=== PATIENT | female | born 1985 | race Caucasian/White ===

== ENCOUNTER 2017-02-10 17:11 | Emergency (ER) | payer OTHER ==
[2017-02-10 17:19] VITALS: TEMP 98.1; BMI 34.2
[2017-02-10] MEDS ORDERED: SODIUM CHLORIDE 1,000 ML IV STA (18:05)
--- NOTE | 2017-02-10 18:05 | PDOC ---
[id number] is a 32 year old female, with a significant past medical history of frequent syncopal episodes, who presents to the emergency department for lightheadedness and dizziness today s/p syncopal episode this morning. She states she felt very lightheaded and weak this morning and syncopized. She states she went to her bed and fell asleep. She reports that when she woke up she continued to feel dizzy and lightheaded. She also reports having unsteady gait. She states she has experienced this numerous times in the past. She denies loss of appetite. She denies chest pain, shortness of breath, headache. She denies fever, chills, nausea, vomit, diarrhea and constipation. She denies dysuria, frequency, urgency and hematuria. Allergies: NKDA Past surgical history: gastric sleeve, D&C x4, cholecystectomy, tubal removal <Ena Vasquez - Last Filed: 02/10/17 18:08> <Marleny Harrison - Last Filed: 02/17/17 10:40> - General Chief Complaint: Lightheaded Stated Complaint: SYNCOPE/NEAR SYNCOPE Time Seen by Provider: 02/10/17 17:41 Past History <Ena Vasquez - Last Filed: 02/10/17 18:08> - Past Medical History Asthma: Yes (last attack 11/2015) Cancer: No Cardiac Disorders: No CVA: No Dementia: No Diabetes: No GI Disorders: No Disorders: No HTN: No Hypercholesterolemia: No Liver Disease: No Seizures: No Thyroid Disease: No Other medical history: MIGRAINES - Surgical History Abdominal Surgery: Yes (GASTRIC SLEEVE) Cholecystectomy: Yes GI Surgery: Yes (SLEEVE) - Reproductive History (#): 9 Para: 3 Cervical CA: No Dysfunctional Uterine Bleeding: No Ectopic : No Endometrial CA: No Polycystic Ovaries: No Therapeutic (s) & number: Yes (4) Tubal Ligation: No Spontaneous : 1 - Psycho/Social/Smoking Cessation Hx Suicidal Ideation: No Smoking History: Never smoked Have you smoked in the past 12 months: No Information on smoking cessation initiated: No Hx Alcohol Use: No Drug/Substance Use Hx: No Substance Use Type: None Hx Substance Use Treatment: No <Marleny Harrison - Last Filed: 02/17/17 10:40> - Past Medical History Allergies/Adverse Reactions: Allergies Allergy/AdvReac Type Severity Reaction Status Date / Time No Known Drug Allergies Allergy Verified 02/10/17 17:19 Home Medications: Ambulatory Orders Ondansetron [Zofran *Odt*] 4 mg SL TID #30 od.tablet 02/10/17 Pramipexole Dihydrochloride [Mirapex -] 0.25 mg PO AM 02/10/17 Pramipexole Dihydrochloride [Mirapex -] 0.375 mg PO HS 02/10/17 Sulfamethoxazole/Trimethoprim [Bactrim *Ds*] 1 tab PO BID #14 tablet 02/10/17 Topiramate 75 mg PO BID 02/10/17 Review of Systems - Review of Systems Able to Perform ROS?: Yes Comments:: 02/10/17 18:08 GENERAL/CONSTITUTIONAL: (+) syncope and weakness. No fever or chills. HEAD, EYES, EARS, NOSE AND THROAT: No change in vision. No ear pain or discharge. No sore throat. CARDIOVASCULAR: No chest pain or shortness of breath. RESPIRATORY: No cough, wheezing, or hemoptysis. GASTROINTESTINAL: No nausea, vomiting, diarrhea or constipation. GENITOURINARY: No dysuria, frequency, or change in urination. MUSCULOSKELETAL: No joint or muscle swelling or pain. No neck or back pain. SKIN: No rash NEUROLOGIC: (+) vertigo, No headache, loss of consciousness, or change in strength/sensation. ENDOCRINE: No increased thirst. No abnormal weight change. HEMATOLOGIC/LYMPHATIC: No anemia, easy bleeding, or history of blood clots. ALLERGIC/IMMUNOLOGIC: No hives or skin allergy. <Ena Vasquez - Last Filed: 02/10/17 18:08> *Physical Exam - Vital Signs Last Vital Signs Temp Pulse Resp BP Pulse Ox 98.1 F 82 18 126/81 99 02/10/17 17:13 02/10/17 17:13 02/10/17 17:13 02/10/17 17:13 02/10/17 17:13 - Physical Exam Comments: 02/10/17 18:09 GENERAL: Awake, alert, and fully oriented, in no acute distress HEAD: No signs of trauma EYES: PERRLA, EOMI, sclera anicteric, conjunctiva clear ENT: (+) Dry mucosa. Auricles normal inspection, hearing grossly normal, nares patent, oropharynx clear without exudates. NECK: Normal ROM, supple, no lymphadenopathy, JVD, or masses LUNGS: Breath sounds equal, clear to auscultation bilaterally. No wheezes, and no crackles HEART: Regular rate and rhythm, normal S1 and S2, no murmurs, rubs or gallops ABDOMEN: Soft, nontender, normoactive bowel sounds. No guarding, no rebound. No masses EXTREMITIES: Normal range of motion, no edema. No clubbing or cyanosis. No cords, erythema, or tenderness NEUROLOGICAL: Cranial nerves II through XII grossly intact. Normal speech, normal gait SKIN: (+) pallor. Warm, Dry, normal turgor, no rashes or lesions noted. <Ena Vasquez - Last Filed: 02/10/17 18:08> - Vital Signs Last Vital Signs Temp Pulse Resp BP Pulse Ox 98.1 F 82 18 126/81 99 02/10/17 17:13 02/10/17 17:13 02/10/17 17:13 02/10/17 17:13 02/10/17 17:13 <Marleny Harrison - Last Filed: 02/17/17 10:40> ED Treatment Course - LABORATORY CBC & Chemistry Diagram: 02/10/17 18:24 02/10/17 19:49 <Marleny Harrison - Last Filed: 02/17/17 10:40> Medical Decision Making - Medical Decision Making 02/10/17 19:[address] Herrera. History of multiple episodes of syncope in the past. Awaiting labs and urine to evaluate for any obvious medical causes. F/u, likely discharge home. <Marleny aHrrison - Last Filed: 02/17/17 10:40> *DC/Admit/Observation/Transfer - Attestations Scribe Attestion: 02/10/17 18:10 Documentation prepared by Ena Vasquez, acting as medical records field technician for Marleny Harrison MD, <Ena Vasquez - Last Filed: 02/10/17 18:08> <Marleny Harrison - Last Filed: 02/17/17 10:40> Diagnosis at time of Disposition: UTI (urinary tract infection) Qualifiers: Urinary tract infection type: site unspecified Hematuria presence: without hematuria Qualified Code(s): N39.0 - Urinary tract infection, site not specified - Discharge Dispostion Disposition: HOME - Prescriptions Prescriptions: Sulfamethoxazole/Trimethoprim [Bactrim *Ds*] 1 tab PO BID #14 tablet Ondansetron [Zofran *Odt*] 4 mg SL TID #30 od.tablet - Referrals Referrals: Felicity Leon NP [Primary Care Provider] - - Patient Instructions Printed Discharge Instructions: DI for Urinary Tract Infection (UTI)
[2017-02-10 18:43] LABS: BASOPHIL 0.8 % (0-2.0); MCH 31.3 pg (25.7-33.7); MCHC 34.2 g/dl (32.0-36.0); MEAN CELL VOLUME 91.5 fl (80-96); MEAN PLT VOLUME 10.2 fl (7.5-11.1); NEUTROPHILS 72.6 % (42.8-82.8); PLATELET COUNT 277 K/MM3 (134-434); RDW 13.2 % (11.6-15.6); WHITE BLOOD COUNT 8.9 K/mm3 (4.0-10.0)
[2017-02-10 20:25] LABS: ALBUMIN 3.8 g/dl (3.4-5.0); ALK PHOS 48 U/L (45-117); ANION GAP 9 (8-16); BILIRUBIN,TOTAL 0.4 mg/dL (0.2-1.0); CALCIUM 8.9 mg/dL (8.5-10.1); CO2 22 mmol/L (21-32); CREATININE 0.6 mg/dL (0.55-1.02); GLUCOSE,RANDOM 88 mg/dL (74-106); SGOT/AST 14 U/L (15-37); SGPT/ALT 21 U/L (12-78); TOT PROT 7.1 g/dl (6.4-8.2)
[2017-02-10 20:28] VITALS: BP 116/78; PULSE 64
[2017-02-10 20:36] LABS: URINE APPEARANCE SLCLOUDY; URINE BILIRUBIN NEGATIVE (NEGATIVE); URINE BLOOD NEGATIVE (NEGATIVE); URINE COLOR YELLOW; URINE GLUCOSE (UA) NEGATIVE (NEGATIVE); URINE KETONE NEGATIVE (NEGATIVE); URINE NITRITE NEGATIVE (NEGATIVE); URINE PROTEIN NEGATIVE (NEGATIVE); URINE UROBILINOGEN NEGATIVE E.U./dl (0.2-1.0)
[2017-02-10 20:42] LABS: URINE LEUK ESTERASE 2+ (NEGATIVE)
[2017-02-10] MEDS ORDERED: SULFAMETHOXAZOLE/TRIMETHOPRIM 800MG/160MG D.S. TABLET PO ONE (20:59)
--- NOTE | 2017-02-10 20:59 | PDOC ---
*Physical Exam - Vital Signs Last Vital Signs Temp Pulse Resp BP Pulse Ox 98.1 F 64 18 116/78 100 02/10/17 17:13 02/10/17 20:27 02/10/17 20:27 02/10/17 20:27 02/10/17 20:27 ED Treatment Course - LABORATORY CBC & Chemistry Diagram: 02/10/17 18:24 02/10/17 19:49 - ADDITIONAL ORDERS Additional order review: Laboratory Results 02/10/17 02/10/17 02/10/17 19:49 19:15 18:24 Sodium 139 Cancelled Potassium 4.4 Cancelled Chloride 108 H Cancelled Carbon Dioxide 22 Cancelled Anion Gap 9 Cancelled BUN 16 Cancelled Creatinine 0.6 Cancelled Creat Clearance w eGFR > 60 Cancelled Random Glucose 88 Cancelled Calcium 8.9 Cancelled Total Bilirubin 0.4 Cancelled AST 14 L Cancelled ALT 21 Cancelled Alkaline Phosphatase 48 Cancelled Total Protein 7.1 Cancelled Albumin 3.8 Cancelled Urine Color Yellow Urine Appearance Slcloudy Urine pH 6.0 Ur Specific [place] 1.025 Urine Protein Negative Urine Glucose (UA) Negative Urine Ketones Negative Urine Blood Negative Urine Nitrite Negative Urine Bilirubin Negative Urine Urobilinogen Negative Ur Leukocyte Esterase 2+ H Urine HCG, Qual Negative 02/10/17 18:24 RBC 4.74 MCV 91.5 MCHC 34.2 RDW 13.2 MPV 10.2 Neutrophils % 72.6 Lymphocytes % 21.1 D Monocytes % 4.5 Eosinophils % 1.0 Basophils % 0.8 - Medications Given in the ED: ED Medications Discontinued Medications Generic Name Dose Route Start Last Admin Trade Name Freq PRN Reason Stop Dose Admin Sodium Chloride 1,000 mls @ 1,000 mls/hr 02/10/17 18:05 02/10/17 18:32 Normal Saline - IV 02/10/17 19:04 1,000 mls/hr ASDIR STA Administration *DC/Admit/Observation/Transfer Diagnosis at time of Disposition: UTI (urinary tract infection) Qualifiers: Urinary tract infection type: site unspecified Hematuria presence: without hematuria Qualified Code(s): N39.0 - Urinary tract infection, site not specified - Discharge Dispostion Disposition: HOME Condition at time of disposition: Stable Admit: No - Referrals Referrals: Felicity Leon NP [Primary Care Provider] - - Patient Instructions Printed Discharge Instructions: DI for Urinary Tract Infection (UTI) - Post Discharge Activity
[2017-02-10] MEDS ORDERED: SULFAMETHOXAZOLE/TRIMETHOPRIM 800MG/160MG D.S. TABLET ONE (21:07)
[2017-02-10 21:56] LABS: URINE MUCUS FEW; URINE RBC 3 /hpf (0-3); URINE WBC 6 /hpf (3-5)
== END 2017-02-10 21:18 | disposition home or self-care (01) ==
LOC: JER 17:11
PROC: 3E0237Z Introduction of Electrolytic and Water Balance Substance into Muscle, Percutaneous Approach (ICD-10-PCS; principal; 2017-02-10)
DX: N39.0 Urinary tract infection, site not specified (principal)
CPT/HCPCS: 36415; 80053; 81003; 81015; 84703; 85025; 96360; 99283-25

== ENCOUNTER 2017-07-28 09:38 | Emergency (ER) | payer OTHER ==
[2017-07-28 09:46] VITALS: BP 124/88; PULSE 78; TEMP 98.6; BMI 38.2
[2017-07-28] MEDS ORDERED: KETOROLAC TROMETHAMINE 60 MG/2 ML VIAL IM ONE (11:38)
[2017-07-28] MEDS ORDERED: KETOROLAC TROMETHAMINE 60 MG/2 ML VIAL ONE (11:39)
--- NOTE | 2017-07-28 11:42 | PDOC ---
History of Present Illness - General Chief Complaint: Back Pain Stated Complaint: BACK PAIN Time Seen by Provider: 07/28/17 10:49 History Source: Patient Exam Limitations: No Limitations - History of Present Illness Initial Comments: 07/28/17 11:37 Patient is here for second evaluation for back pain. States was seen by her PMD 2 weeks ago and prescribed Aleve and cyclobenzaprine for low back spasm. Has had minimal to no relief. Denies numbness or tingling of the foot. Denies fevers , no nausea vomiting diarrhea or constipation. Denies any dysuria. Has had kidney stones in the past but denies that same type of pain. Feels is persistent spasm but is uncertain. Occurred: reports: just prior to arrival Severity: reports: mild Pain Location: reports: back Method of Injury: Yes: unknown Modifying Factors: improves with: None. worse with: pain medication Loss of Consciousness: no loss of consciousness Associated Symptoms (Fall): denies symptoms Past History - Travel Traveled outside of the country in the last 30 days: No Close contact w/someone who was outside of country & ill: No - Past Medical History Allergies/Adverse Reactions: Allergies Allergy/AdvReac Type Severity Reaction Status Date / Time No Known Drug Allergies Allergy Verified 07/28/17 09:43 Home Medications: Ambulatory Orders Methocarbamol [Robaxin -] 1,500 mg PO Q8H PRN #20 tablet 07/28/17 Naproxen [Naprosyn -] 500 mg PO BID #14 tablet 07/28/17 Prednisone [Deltasone -] 20 mg PO BID #10 tablet 07/28/17 Asthma: Yes (last attack 11/2015) Cancer: No Cardiac Disorders: No CVA: No Dementia: No Diabetes: No GI Disorders: No Disorders: No HTN: No Hypercholesterolemia: No Liver Disease: No Seizures: No Thyroid Disease: No - Surgical History Abdominal Surgery: Yes (GASTRIC SLEEVE) Cholecystectomy: Yes GI Surgery: Yes (SLEEVE) - Reproductive History (#): 9 Para: 3 Cervical CA: No Dysfunctional Uterine Bleeding: No Ectopic : No Endometrial CA: No Polycystic Ovaries: No Therapeutic (s) & number: Yes (4) Tubal Ligation: No Spontaneous : 1 - Suicide/Smoking/Psychosocial Hx Smoking History: Never smoked Have you smoked in the past 12 months: No Information on smoking cessation initiated: No Hx Alcohol Use: No Drug/Substance Use Hx: No Substance Use Type: None Hx Substance Use Treatment: No Review of Systems - Review of Systems Able to Perform ROS?: Yes Is the patient limited Wallisian proficient: Yes Constitutional: Yes: Symptoms Reported, See HPI, Loss of Appetite. No: Fever, Malaise HEENTM: Yes: See HPI. No: Symptoms Reported Musculoskeletal: Yes: Symptoms Reported, See HPI, Back Pain. No: Joint Pain Integumentary: Yes: See HPI. No: Symptoms Reported, Rash All Other Systems: Reviewed and Negative *Physical Exam - Vital Signs Last Vital Signs Temp Pulse Resp BP Pulse Ox 98.6 F 78 18 124/88 99 07/28/17 09:41 07/28/17 09:41 07/28/17 09:41 07/28/17 09:41 07/28/17 09:41 - Physical Exam General Appearance: Yes: Nourished, Appropriately Dressed, Apparent Distress HEENT: positive: DARRIN, Normal ENT Inspection, TMs Normal, Pharynx Normal Neck: positive: Supple. negative: Tender Respiratory/Chest: positive: Lungs Clear Cardiovascular: positive: Regular Rate Gastrointestinal/Abdominal: positive: Soft. negative: Tender Musculoskeletal: positive: Normal Inspection, Decreased Range of Motion, Muscle Spasm (palpable spasm noted to the paravertebral spinous muscles and lower lumbar spine.). negative: CVA Tenderness, Vertebral Tenderness Extremity: positive: Normal Capillary Refill, Normal Inspection, Normal Range of Motion Integumentary: positive: Normal Color, Dry, Warm Neurologic: positive: gem cutter II-XII NML intact, Fully Oriented, Alert, Normal Mood/ Affect, Normal Response, Motor Strength 5/5 Progress Note - Progress Note Progress Note: Persistent spasm, will treat and change from cyclobenzaprine to Robaxin, and add prednisone for steroidal anti-inflammatory purposes along with ibuprofen. Encouraged patient to follow up with PMD for further testing and possible physical therapy referral. *DC/Admit/Observation/Transfer Diagnosis at time of Disposition: Low back strain Qualifiers: Encounter type: initial encounter Qualified Code(s): S39.012A - Strain of muscle, fascia and tendon of lower back, initial encounter; S39.012A - Strain of muscle, fascia and tendon of lower back, initial encounter - Discharge Dispostion Disposition: HOME Condition at time of disposition: Stable Admit: No - Referrals Referrals: Nima Moore [Primary Care Provider] - - Patient Instructions Printed Discharge Instructions: DI for Back Strain or Sprain Additional Instructions: Rest, no heavy lifting or exercise until pain is resolved Hot soaks to neck and low back as often as possible/hot showers or Jacuzzis No massage or therapy until spasm is gone Continue ibuprofen 2-200 mg tablets every 6 hours for the next 3 days then as needed for pain and swelling Prednisone 40 mg daily for the next 5 days Robaxin 1500 mg every 8 hours today then reduce to 750 mg every 8 hours as needed for spasm If not significant improvement within 24 hours with medication and rest regime, followup with private physician for change in medications and /or therapy. - Post Discharge Activity Forms/Work/School Notes: Back to Work
[2017-07-28 11:50] LABS: URINE APPEARANCE CLEAR; URINE BILIRUBIN NEGATIVE (NEGATIVE); URINE BLOOD NEGATIVE (NEGATIVE); URINE COLOR YELLOW; URINE GLUCOSE (UA) NEGATIVE (NEGATIVE); URINE KETONE NEGATIVE (NEGATIVE); URINE NITRITE NEGATIVE (NEGATIVE); URINE PROTEIN NEGATIVE (NEGATIVE); URINE UROBILINOGEN NEGATIVE mg/dL (0.2-1.0)
[2017-07-28 19:33] LABS: URINE LEUK ESTERASE Negative (NEGATIVE)
== END 2017-07-28 12:59 | disposition home or self-care (01) ==
LOC: JERFT 09:38
PROC: 3E0133Z Introduction of Anti-inflammatory into Subcutaneous Tissue, Percutaneous Approach (ICD-10-PCS; principal; 2017-07-28)
DX: S39.012A Strain of muscle, fascia and tendon of lower back, initial encounter (principal); X58.XXXA Exposure to other specified factors, initial encounter; Y93.9 Activity, unspecified; Y92.9 Unspecified place or not applicable; J45.909 Unspecified asthma, uncomplicated; Z98.84 Bariatric surgery status
CPT/HCPCS: 72100-TC; 81003; 99281-25

== ENCOUNTER 2017-12-10 09:42 | Emergency (ER) | payer OTHER ==
[2017-12-10 09:49] VITALS: TEMP 98.1; BMI 36.6
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
[2017-12-10] MEDS ORDERED: KETOROLAC TROMETHAMINE 30 MG/1 ML VIAL IVPUSH ONE (11:54)
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
[2017-12-10 12:02] LABS: BASO % 0.7 % (0-2.0); EOS % 1.4 % (0-4.5); HEMATOCRIT 40.4 % (32.4-45.2); HEMOGLOBIN 13.5 GM/dL (10.7-15.3); LYMPH % 22.5 % (8-40); MCH 30.9 pg (25.7-33.7); MCHC 33.5 g/dl (32.0-36.0); MEAN CELL VOLUME 92.1 fl (80-96); MEAN PLT VOLUME 9.4 fl (7.5-11.1); MONO % 5.4 % (3.8-10.2); PLATELET COUNT 325 K/MM3 (134-434); RBC 4.38 M/mm3 (3.60-5.2); WHITE BLOOD COUNT 7.6 K/mm3 (4.0-10.0)
[2017-12-10] MEDS ORDERED: KETOROLAC TROMETHAMINE 30 MG/1 ML VIAL ONE (12:02)
[2017-12-10 12:16] LABS: ALBUMIN 3.9 g/dl (3.4-5.0); ANION GAP 10 (8-16); BILIRUBIN,TOTAL 0.3 mg/dL (0.2-1.0); BLOOD UREA NITROGEN 18 mg/dL (7-18); CALCIUM 9.5 mg/dL (8.5-10.1); CHLORIDE 103 mmol/L (98-107); CO2 27 mmol/L (21-32); CREATININE 0.5 mg/dL (0.55-1.02); GLUCOSE,RANDOM 93 mg/dL (74-106); POTASSIUM 4.4 mmol/L (3.5-5.1); SGOT/AST 24 U/L (15-37); SGPT/ALT 36 U/L (12-78); SODIUM 140 mmol/L (136-145)
[2017-12-10 12:17] LABS: ALK PHOS 56 U/L (45-117); TOT PROT 7.4 g/dl (6.4-8.2)
[2017-12-10 15:35] VITALS: BP 125/87; PULSE 74
== END 2017-12-10 15:35 | disposition home or self-care (01) ==
LOC: JERFT 09:42 → JER 09:42
PROC: 3E0333Z Introduction of Anti-inflammatory into Peripheral Vein, Percutaneous Approach (ICD-10-PCS; principal; 2017-12-10)
DX: M54.6 Pain in thoracic spine (principal); V79.49XA Driver of bus injured in collision with other motor vehicles in traffic accident, initial encounter; Y92.414 Local residential or business street as the place of occurrence of the external cause; Y93.89 Activity, other specified
CPT/HCPCS: 36415; 72128-TC; 74177-TC; 80053; 84703; 85025; 99283-25

== ENCOUNTER 2018-03-30 12:22 | Emergency (ER) | payer OTHER ==
[2018-03-30 12:27] VITALS: BMI 37.4
[2018-03-30] MEDS ORDERED: ONDANSETRON *ODT* 4 MG TABLET SL ONE (13:16)
--- NOTE | 2018-03-30 13:16 | PDOC ---
History of Present Illness - General Chief Complaint: Lightheaded Stated Complaint: LIGHTHEADED Time Seen by Provider: 03/30/18 12:57 - History of Present Illness Initial Comments: 03/30/18 14:11 33F with pmh of migraines and vertigo presents with onset of vertigo and nausea this morning around 8:30. Patient has history of episodic vertigo for several years, typically lasts for a few seconds and then resolves. She says that her previous neurological workups never found anything wrong with her. No headache/vision change/speech change/focal weakness. No vomiting, no fevers or chills, no neck stiffness. Symptoms are similar in quality to her past vertigo, but are more severe and lasting longer. Past History - Past Medical History Allergies/Adverse Reactions: Allergies Allergy/AdvReac Type Severity Reaction Status Date / Time No Known Drug Allergies Allergy Verified 03/30/18 12:23 Home Medications: Ambulatory Orders Meclizine HCl [Antivert -] 25 mg PO TID #21 tablet 03/30/18 Asthma: Yes (last attack 11/2015) Cancer: No Cardiac Disorders: No CVA: No COPD: No DVT: No Dementia: No Diabetes: No GI Disorders: No Disorders: No HTN: Yes (NOT ON MEDS , LABILE HTN) Hypercholesterolemia: No Liver Disease: No Seizures: No Thyroid Disease: No Other medical history: MIGRAINES,ARITHRITIS, VERTIGO - Surgical History Abdominal Surgery: Yes (GASTRIC SLEEVE) Cholecystectomy: Yes GI Surgery: Yes (SLEEVE) - Reproductive History (#): 9 Para: 3 Cervical CA: No Dysfunctional Uterine Bleeding: No Ectopic : No Endometrial CA: No Polycystic Ovaries: No Therapeutic (s) & number: Yes (4) Tubal Ligation: No Spontaneous : 1 - Suicide/Smoking/Psychosocial Hx Smoking History: Never smoked Have you smoked in the past 12 months: No Information on smoking cessation initiated: No Hx Alcohol Use: No Drug/Substance Use Hx: No Substance Use Type: None Hx Substance Use Treatment: No Review of Systems - Review of Systems Able to Perform ROS?: Yes Is the patient limited Samoan proficient: No Constitutional: No: Symptoms Reported HEENTM: No: Symptoms Reported Respiratory: No: Symptoms reported Cardiac (ROS): No: Symptoms Reported ABD/GI: No: Symptoms Reported : No: Symptoms Reported Musculoskeletal: No: Symptoms Reported Integumentary: No: Symptoms Reported Neurological: No: Headache *Physical Exam - Vital Signs Last Vital Signs Temp Pulse Resp BP Pulse Ox 98.7 F 75 18 137/99 100 03/30/18 12:23 03/30/18 12:23 03/30/18 12:23 03/30/18 12:23 03/30/18 12:23 - Physical Exam General Appearance: Yes: Nourished, Appropriately Dressed. No: Apparent Distress HEENT: positive: EOMI, DARRIN, Normal ENT Inspection, Other (nystagmus with head impulse test) Respiratory/Chest: positive: Lungs Clear, Normal Breath Sounds. negative: Chest Tender, Respiratory Distress Cardiovascular: positive: Regular Rhythm, Regular Rate, S1, S2 Gastrointestinal/Abdominal: positive: Normal Bowel Sounds, Flat, Soft. negative : Tender Extremity: positive: Normal Capillary Refill, Normal Inspection, Normal Range of Motion Neurologic: positive: Fully Oriented, Alert, Normal Response, Motor Strength 5/5 Medical Decision Making - Medical Decision Making 03/30/18 14:23 33-year-old female with positional vertigo that began this morning. Presentation seems most consistent with benign positional vertigo, less likely central etiology. Trial of antiemetic and meclizine Reassess. No indication for emergent imaging at this time. 03/30/18 14:32 Patient feeling much better with meclizine. 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 Follow up with Dr. Byers, Neurologist. Come back to the ER for any new, concerning or worsening symptom. - Post Discharge Activity Forms/Work/School Notes: Back to Work
[2018-03-30] MEDS ORDERED: ONDANSETRON 8 MG TABLET (FP) PO ONE (13:25)
[2018-03-30] MEDS ORDERED: MECLIZINE HCL 25 MG TABLET (FP) PO ONE (13:28)
[2018-03-30] MEDS ORDERED: MECLIZINE HCL 12.5 MG TABLET ONE (13:31)
[2018-03-30 13:50] LABS: URINE APPEARANCE CLEAR; URINE BILIRUBIN NEGATIVE (<2.0 mg/dL); URINE BLOOD NEGATIVE (NEGATIVE); URINE COLOR LTYELLOW; URINE GLUCOSE (UA) NEGATIVE (NEGATIVE); URINE KETONE NEGATIVE (NEGATIVE); URINE LEUK ESTERASE NEGATIVE (NEGATIVE); URINE NITRITE NEGATIVE (NEGATIVE); URINE PROTEIN NEGATIVE (NEGATIVE); URINE UROBILINOGEN NEGATIVE mg/dL (0.2-1.0)
--- NOTE | 2018-03-30 14:05 | PDOC ---
Attending Attestation - Resident Resident Name: Deny Bai - ED Attending Attestation I have performed the following: I have examined & evaluated the patient, The case was reviewed & discussed with the resident, I agree w/resident's findings & plan - HPI HPI: 03/30/18 14:03 Healthy 33-year-old female presents with vertigo since this morning. Patient has history of episodic vertigo for several years, typically lasts for a few seconds and then resolves. She has had negative neurological workups in the past including MRI several years ago. Patient awoke today feeling well, while at work developed positional vertigo without headache/vision change/speech change/focal weakness. No vomiting, no fevers or chills, no neck stiffness. Symptoms are similar in quality to her past vertigo, but are more severe and lasting longer. - Physicial Exam PE: 03/30/18 14:04 Vital signs normal, h/o salpingectomy documented 2015 Generally well-appearing, ambulating from bathroom but requiring some support by her Pupils are equal round and reactive, speech is clear, neck is supple, no audible carotid bruit, neurological exam is nonfocal including finger-nose- finger - Medical Decision Making 03/30/18 14:05 33-year-old female with positional vertigo that began this morning. Presentation seems most consistent with benign positional vertigo, less likely central etiology. Trial of antiemetic and meclizine Reassess. No indication for emergent imaging at this time.
[2018-03-30 14:44] VITALS: BP 119/81; PULSE 81; TEMP 98.2
== END 2018-03-30 14:45 | disposition home or self-care (01) ==
LOC: JER 12:22
DX: H81.10 Benign paroxysmal vertigo, unspecified ear (principal)
CPT/HCPCS: 81003; 99282-25; Q0162

== ENCOUNTER 2018-08-19 05:19 | Day surgery (SDC) | payer OTHER ==
[2018-08-18 10:59] VITALS: BMI 37.4
[2018-08-19] MEDS ORDERED: IBUPROFEN 800 MG/8 ML IJ IVPB PRN (13:03)
[2018-08-19] MEDS ORDERED: ACETAMINOPHEN 325 MG TABLET (FP) PO PRN (13:03)
--- NOTE | 2018-08-19 13:03 | HP ---
History & Physical Update - History History: No Change - Physical Physical: No Change - Assessment Assessment: No Change - Plan Plan: No Change (Agree with H&P from 08/17/18, AUB, polyp, for hysteroscopy/D&C/ polypectomy.)
[2018-08-19] MEDS ORDERED: LACTATED RINGERS SOLUTION 1,000 ML IV SCH (13:15)
[2018-08-19] MEDS ORDERED: ceFAZolin 2 GRAM PREMIX BAG IVPB ONE (14:30)
[2018-08-19] MEDS ORDERED: MIDAZOLAM HCL 2 MG/2 ML SINGLE DOSE VIAL ONE (14:53)
[2018-08-19] MEDS ORDERED: DEXAMETHASONE SOD PHOSPHATE 4 MG/1 ML VIAL ONE (14:53)
[2018-08-19] MEDS ORDERED: LIDOCAINE HCL/PF 2% SDV 5ML VIAL ONE (14:53)
[2018-08-19] MEDS ORDERED: KETOROLAC TROMETHAMINE 30 MG/1 ML VIAL ONE ×2 (14:53→15:26)
[2018-08-19] MEDS ORDERED: ONDANSETRON 4 MG/2 ML VIAL IVPUSH PRN (14:58)
[2018-08-19] MEDS ORDERED: oxyCODONE HCL 5 MG TABLET PO PRN (14:58)
[2018-08-19] MEDS ORDERED: ceFAZolin SODIUM 1 GM VIAL ONE (15:27)
[2018-08-19] MEDS ORDERED: SODIUM CHLORIDE 0.9% P/F 10 ML VIAL IJ ONE (15:27)
[2018-08-19] MEDS ORDERED: ceFAZolin SODIUM 1 GM VIAL IVPB ONE (15:29)
[2018-08-19] MEDS ORDERED: PROPOFOL 20 ML ONE (15:49)
--- NOTE | 2018-08-19 15:53 | OP ---
Operative Note - Note: Operative Date: 08/19/18 Pre-Operative Diagnosis: AUB, cervical polyp Operation: hysteroscopy, D&C Findings: polypoid endometrial tissue Post-Operative Diagnosis: Same as Pre-op Surgeon: Arleth Montanez Anesthesia: General (with LMA) Specimens Removed: endometrial curettings Estimated Blood Loss (mls): 5 Operative Report Dictated: Yes
[2018-08-19 17:09] VITALS: TEMP 98.2
[2018-08-19 18:09] VITALS: BP 116/73; PULSE 89
--- NOTE | 2018-08-23 15:20 | PATH ---
Surgical Pathology Report Patient Name: PINO CARTWRIGHT [facility]. Rec. #: [id number] /Age/Gender: 1985 (Age: 33) / F Account: [id number] Location: [facility] SUR[facility] Taken: 08/19/2018 Received: 08/20/2018 Reported: 08/23/2018 Physicians: Arleth Montanez M.D. Specimen(s) Received ENDOMETRIAL CURETTINGS Clinical History Polyp, abnormal uterine bleeding Final Diagnosis ENDOMETRIAL CURETTINGS, DILATION AND CURETTAGE: POLYPOID FRAGMENTS OF PROLIFERATIVE ENDOMETRIUM SUGGESTIVE OF POLYP, LOWER UTERINE SEGMENT, SUPERFICIAL MYOMETRIUM, AND BENIGN CERVICAL TISSUE. Electronically Signed Radha Hendrix M.D. Gross Description Received in formalin, labeled "endometrial curetting" are multiple dark brown portions of soft tissue measuring 1.5 x 1.0 x 0.3 cm in aggregate. The specimen is entirely submitted in 1 cassette. ZACH/08/20/2018 azeem/08/20/2018
--- NOTE | 2018-09-01 13:45 | OP ---
DATE OF OPERATION: 08/19/2018 PREOPERATIVE DIAGNOSIS: Abnormal uterine bleeding, cervical polyp. POSTOPERATIVE DIAGNOSIS: Polypoid endometrial tissue. PROCEDURE: Hysteroscopy, dilatation and curettage, and polypectomy. SURGEON: Arleth Montanez MD ANESTHESIA: General with LMA. COMPLICATIONS: None. SPECIMENS REMOVED: Endometrial currettings. ESTIMATED BLOOD LOSS: 5 mL. COUNTS: Sponge, needle, and instrument counts correct. DISPOSITION: Stable to PACU. BRIEF HISTORY AND PROCEDURE: The patient is a 33-year-old female who was in the office complaining of some heavy long periods. On hysterosonogram in the office the endocervical polyp was noted. The patient was counseled on her options and she elected to undergo a hysteroscopic resection of the lesion. The patient was admitted to [facility] in the outpatient procedure unit on August 19, 2018. The consents which were signed in the office were confirmed upon admission. She was then taken back to the operating room and placed in the dorsal lithotomy position and general anesthesia was administered with LMA. A hard time-out was performed. A speculum was placed inside the vagina. The anterior lip of the cervix was grasped with a tenaculum and the cervix was dilated to accommodate a diagnostic hysteroscope, which was introduced into the fundus and bilateral tubal ostia were noted. A lower uterine segment polyp was noted otherwise there were no intracavitary lesions. The hysteroscope was then removed and the suction dilatation and curettage and sharp dilatation and curettage was performed and the hysteroscope was then advanced to the fundus. No uterine perforation or trauma was appreciated and the polypoid tissue had been removed. All instruments were removed from the vaginal and the patient was awoken from anesthesia. The sponge and instruments were reported to be correct. The patient tolerated the procedure well and was recovering in stable condition after the procedure. ARLETH MONTANEZ DO /[id number]
== END 2018-08-19 18:09 | disposition home or self-care (01) ==
LOC: JASU-SURG 05:19
PROVIDERS: ATTEND Obstetrics & Gynecology
PROC: 0UJD8ZZ Inspection of Uterus and Cervix, Via Natural or Artificial Opening Endoscopic (ICD-10-PCS; 2018-08-19)
PROC: 0UB97ZX Excision of Uterus, Via Natural or Artificial Opening, Diagnostic (ICD-10-PCS; principal; 2018-08-19 14:30)
PROC: 0UDB7ZX Extraction of Endometrium, Via Natural or Artificial Opening, Diagnostic (ICD-10-PCS; 2018-08-19 14:30)
DX: N93.9 Abnormal uterine and vaginal bleeding, unspecified (principal); N84.0 Polyp of corpus uteri
CPT/HCPCS: 88305-TC; 94760

== ENCOUNTER 2019-09-29 13:56 | Emergency (ER) | payer OTHER ==
[2019-09-29 14:00] VITALS: BP 130/81; PULSE 97; TEMP 98; BMI 37.4
[2019-09-29] MEDS ORDERED: IBUPROFEN 600 MG TABLET (FP) PO ONE (15:40)
--- NOTE | 2019-09-29 16:57 | PDOC ---
History of Present Illness - General Chief Complaint: Pain Stated Complaint: LT FOOT PAIN Time Seen by Provider: 09/29/19 14:58 History Source: Patient Exam Limitations: No Limitations - History of Present Illness Initial Comments: 09/29/19 16:50 34-year-old female denies past medical history presents complaining of left ankle and foot pain since this morning. States she went to bed with no complaints, awoke this morning stepped on the ground and felt pain to left ankle and foot. Does not recall injury, denies calf pain, recent travel, recent pedicure, chest pain, shortness of breath or any other symptoms. ROS: GENERAL/CONSTITUTIONAL: No fever, chills, weakness, dizziness HEAD, EYES, EARS, NOSE AND THROAT: No changes in vision, No ear pain or discharge, No sore throat CARDIOVASCULAR: No chest pain RESPIRATORY: No shortness of breath or cough GASTROINTESTINAL: No pain, nausea, vomiting, diarrhea or constipation GENITOURINARY: No dysuria MUSCULOSKELETAL: No neck or back pain SKIN: No rash NEUROLOGIC: No headache, vertigo, loss of consciousness, or loss of sensation PE: GENERAL: well-appearing, NAD HEAD: NCAT EYES: Pupils equal, round and reactive to light, sclera anicteric, conjunctiva clear ENT: pharynx: no erythema, no exudate, uvula midline NECK: supple CHEST: nontender RESP: clear, no w/r/r CARDIO: rrr, no m/g/r ABD: +BS, soft, nontender, non distended BACK: no midline spinal ttp, no CVAT EXTREMITIES: Normal range of motion, left lateral ankle swelling, no ecchymosis noted, no bony tenderness to palpation NEUROLOGICAL: Normal speech, walking with slight limp SKIN: Warm, Dry Is this a multiple visit Asthma Patient?: Yes Past History - Past Medical History Allergies/Adverse Reactions: Allergies Allergy/AdvReac Type Severity Reaction Status Date / Time No Known Drug Allergies Allergy Verified 09/29/19 14:00 Home Medications: Ambulatory Orders Amitriptyline HCl 25 mg PO HS 08/18/18 Cetirizine HCl [Zyrtec -] 10 mg PO DAILY 08/18/18 Cholecalciferol (Vitamin D3) [Vitamin D3 -] 400 unit PO DAILY 08/18/18 Magnesium 30 mg PO DAILY 08/18/18 Anemia: Yes (AFTER CHILDBIRTH) Asthma: Yes (last attack 11/2015) Cancer: No Cardiac Disorders: No CVA: No COPD: No CHF: No DVT: No Dementia: No Diabetes: No GI Disorders: No Disorders: No HTN: Yes (NOT ON MEDS , LABILE HTN) Hypercholesterolemia: No Liver Disease: No Seizures: No Thyroid Disease: No - Surgical History Abdominal Surgery: Yes (GASTRIC SLEEVE) Appendectomy: No Cardiac Surgery: No Cholecystectomy: Yes GI Surgery: Yes (SLEEVE) Lung Surgery: No Neurologic Surgery: No Orthopedic Surgery: No - Reproductive History (#): 9 Para: 3 Cervical CA: No Dysfunctional Uterine Bleeding: No Ectopic : No Endometrial CA: No Polycystic Ovaries: No Therapeutic (s) & number: Yes (4) Tubal Ligation: No Spontaneous : 1 - Psycho Social/Smoking Cessation Hx Smoking History: Never smoked Have you smoked in the past 12 months: No Hx Alcohol Use: No Drug/Substance Use Hx: No Substance Use Type: None Hx Substance Use Treatment: No *Physical Exam - Vital Signs Last Vital Signs Temp Pulse Resp BP Pulse Ox 98 F 97 H 18 130/81 99 09/29/19 13:58 09/29/19 13:58 09/29/19 13:58 09/29/19 13:58 09/29/19 13:58 ED Treatment Course - RADIOLOGY Radiology Studies Ordered: Category Date Time Status ANKLE-LEFT [RAD] Stat Radiology 09/29/19 15:40 Completed FOOT-LEFT [RAD] Stat Radiology 09/29/19 15:40 Completed - Medications Given in the ED: ED Medications Discontinued Medications Generic Name Dose Route Start Last Admin Trade Name Willq PRN Reason Stop Dose Admin Ibuprofen 600 mg 09/29/19 15:40 09/29/19 15:49 Motrin - PO 09/29/19 15:41 600 mg ONCE ONE Administration Medical Decision Making - Medical Decision Making 09/29/19 16:57 34-year-old female denies past medical history complaining of left ankle and foot pain. Denies injury. Left ankle and foot x-ray negative for acute findings Palmer wrap applied to ankle Crutches provided Return precautions discussed Discharge - Discharge Information Problems reviewed: Yes Clinical Impression/Diagnosis: Ankle pain Qualifiers: Chronicity: acute Laterality: left Qualified Code(s): M25.572 - Pain in left ankle and joints of left foot Condition: Stable Disposition: HOME - Follow up/Referral Referrals: Marianna Keys MD [Primary Care Provider] - - Patient Discharge Instructions Additional Instructions: Wear Palmer bandage for comfort Take ibuprofen 600 mg as needed for pain Use crutches for ambulation Return to ED if increased pain, swelling, calf pain, shortness of breath, chest pain or any worsening symptoms - Post Discharge Activity
== END 2019-09-29 17:18 | disposition home or self-care (01) ==
LOC: JERFT 13:56
DX: M25.572 Pain in left ankle and joints of left foot (principal); Z98.84 Bariatric surgery status; I10 Essential (primary) hypertension
CPT/HCPCS: 73610-TC-LT-FY; 73630-TC-LT; 99281-25

== ENCOUNTER 2025-03-07 19:49 | Inpatient (IN) | payer OTHER ==
[2025-03-07 20:34] VITALS: BMI 33.7
[2025-03-07] MEDS ORDERED: BENZONATATE 200 MG CAPSULE PO PRN (20:57)
[2025-03-07] MEDS ORDERED: NALOXONE (NARCAN) HCL 4 MG/0.1 ML SPRAY NS PRN (20:57)
[2025-03-07] MEDS ORDERED: guaiFENesin 600 MG TABLET.ER (FP) PO PRN (20:57)
[2025-03-07] MEDS ORDERED: NICOTINE POLACRILEX 4 MG GUM BUC PRN (20:57)
[2025-03-07] MEDS ORDERED: IBUPROFEN 400 MG TABLET (FP) PO PRN (20:57)
[2025-03-07] MEDS ORDERED: ONDANSETRON *ODT* 4 MG TABLET SL PRN (20:57)
[2025-03-07] MEDS ORDERED: ACETAMINOPHEN 325 MG TABLET (FP) PO PRN (20:57)
[2025-03-07] MEDS ORDERED: MAGNESIUM HYDROX 2400MG/30ML ORAL SUSPENSION 30 ML CUP PO PRN (20:57)
[2025-03-07] MEDS ORDERED: BISMUTH SUBSALICYLATE 524 MG/30 ML PO PRN (20:57)
[2025-03-07] MEDS ORDERED: BENZOCAINE/MENTHOL (CHLORASEPTIC ) LOZENGE MM PRN (20:57)
[2025-03-07] MEDS ORDERED: LOPERAMIDE HCL 2 MG CAPSULE PO PRN (20:57)
[2025-03-07] MEDS ORDERED: DICYCLOMINE HCL 10 MG CAPSULE PO PRN (20:57)
[2025-03-07] MEDS ORDERED: POLYETHYLENE GLYCOL (HEALTHYLAX) 3350 17 GM PACKET PO PRN (20:57)
[2025-03-07] MEDS ORDERED: MAG HYDROX/AL HYDROX/SIMETH 30 ML UNIT-DOSE CUP PO PRN (20:57)
[2025-03-07] MEDS: NITROFURANTOIN MONOHYD/M-CRYST 100 MG CAPSULE PO SCH (23:00)
[2025-03-07] MEDS ORDERED: MELATONIN 5 MG TABLETS ONE (23:14)
[2025-03-07] MEDS ORDERED: METHOCARBAMOL 500 MG TABLET ONE (23:14)
[2025-03-07] MEDS: METHOCARBAMOL 500 MG TABLET PO PRN (23:18)
[2025-03-07] MEDS: MELATONIN 5 MG TABLETS PO SCH (23:18)
[2025-03-07] MEDS: THIAMINE 100 MG TABLET PO SCH (23:18)
[2025-03-08] MEDS ORDERED: NICOTINE 14 MG/24 HOURS TOPICAL PATCH TD ONE (10:12)
[2025-03-08] MEDS ORDERED: PRENATAL VITAMINS W/ FOLIC ACID TABLET (FP) PO ONE (10:12)
[2025-03-08] MEDS: PRENATAL VITAMINS W/ FOLIC ACID TABLET (FP) PO SCH (10:13)
[2025-03-08] MEDS: NICOTINE 14 MG/24 HOURS TOPICAL PATCH TD SCH (10:13)
[2025-03-08] MEDS ORDERED: NALTREXONE HCL 50 MG TABLET PO ONE (10:45)
[2025-03-08] MEDS ORDERED: LORazepam 1 MG TABLET PO PRN (10:49)
[2025-03-08 11:26] LABS: HEMATOCRIT 37.7 % (34.1-44.9); HEMOGLOBIN 12.3 g/dL (11.2-15.7); MCHC 32.6 g/dl (32.2-35.5); MEAN CELL VOLUME 90.8 fl (79.4-94.8); MEAN PLT VOLUME 11.9 fl (9.4-12.3); PLATELET COUNT 319 x10^3/uL (182-369); RDW 13.5 % (12.2-17.1)
[2025-03-08 11:30] LABS: CHLORIDE 107 mmol/L (98-107); POTASSIUM 3.7 mmol/L (3.5-5.1); SODIUM 141 mmol/L (136-145)
[2025-03-08 11:42] LABS: ALBUMIN 3.4 g/dl (3.4-5.0); CALCIUM 9.6 mg/dL (8.5-10.1)
[2025-03-08 11:44] LABS: ANION GAP 6 mmol/L (4-13); CO2 28 mmol/L (21-32); GLUCOSE,RANDOM 97 mg/dL (74-106); SGPT/ALT 26 U/L (13-61)
[2025-03-08 11:46] LABS: BILIRUBIN,TOTAL 0.7 mg/dL (0.2-1); CREATININE 0.7 mg/dL (0.55-1.3); SGOT/AST 20 U/L (15-37); TOT PROT 6.5 g/dl (6.4-8.2)
[2025-03-08 11:48] LABS: ALK PHOS 47 U/L (45-117)
[2025-03-08] MEDS: NALTREXONE HCL 50 MG TABLET PO ONE (14:13)
[2025-03-08] MEDS: LORazepam 2 MG TABLET PO SCH (17:35)
[2025-03-08] MEDS: hydrOXYzine PAMOATE 25 MG CAPSULE (FP) PO PRN (17:36)
[2025-03-08] MEDS: NITROFURANTOIN MONOHYD/M-CRYST 100 MG CAPSULE PO SCH (22:07)
[2025-03-09] MEDS: NALTREXONE HCL 50 MG TABLET PO SCH (10:15)
[2025-03-09] MEDS: ARIPiprazole 5 MG TABLET PO SCH (15:14)
[2025-03-09] MEDS: IBUPROFEN 600 MG TABLET (FP) PO PRN (17:43)
[2025-03-09] MEDS ORDERED: LITHIUM CARBONATE 300 MG CAPSULE PO SCH (22:00)
[2025-03-10] MEDS: LORazepam 1 MG TABLET PO SCH (05:50)
[2025-03-10 07:55] VITALS: TEMP 97.6
[2025-03-10 10:04] VITALS: RESP 18
[2025-03-10 17:36] VITALS: BP 110/75; PULSE 101
[2025-03-11] MEDS ORDERED: LORazepam 0.5 MG TABLET PO PRN
[2025-03-11] MEDS ORDERED: LORazepam 0.5 MG TABLET PO SCH (05:00)
[2025-03-12] MEDS ORDERED: LORazepam 0.5 MG TABLET PO ONE (05:00)
== END 2025-03-10 17:16 | disposition left against medical advice (07) | DRG 770 ==
LOC: YASAS 19:49 → Y6N 03-08 12:47 → UNDODISIN 03-09 12:58
PROVIDERS: ADMIT Allergy & Immunology; ATTEND Allergy & Immunology
PROC: HZ2ZZZZ Detoxification Services for Substance Abuse Treatment (ICD-10-PCS; principal; 2025-03-08)
DX: F10.230 Alcohol dependence with withdrawal, uncomplicated (principal); F14.20 Cocaine dependence, uncomplicated; F17.210 Nicotine dependence, cigarettes, uncomplicated; F19.282 Other psychoactive substance dependence with psychoactive substance-induced sleep disorder; F31.9 Bipolar disorder, unspecified; J45.909 Unspecified asthma, uncomplicated; N39.0 Urinary tract infection, site not specified
CPT/HCPCS: 36415; 80053; 80305; 80307; 81025; 85027; 86780; 93005; 93010